=== PATIENT | male | born 1945 | race Two or more races ===

== ENCOUNTER 2024-09-01 22:58 | Emergency (ER) | payer MEDICARE, OTHER ==
[~2024-09-01] VITALS: Ht 167.6 cm; Wt 74.8 kg
[2024-09-01] MEDS ORDERED: LIDOCAINE HCL 1% 20 ML VIAL ONE (23:41)
[2024-09-02 00:39] VITALS: BP 135/88; TEMP 98.5; O2SAT 96
[2024-09-02] MEDS: LIDOCAINE HCL 1% 20 ML VIAL TP ONE (00:43)
== END 2024-09-02 00:40 | disposition home or self-care (01) ==
LOC: ER 22:58
DX: I83.891 Varicose veins of right lower extremity with other complications (principal); E78.5 Hyperlipidemia, unspecified; Z98.890 Other specified postprocedural states
CPT/HCPCS: 37799; 99283; J3490; A4606; A4663

== ENCOUNTER 2024-09-11 23:16 | Emergency (ER) | payer OTHER ==
[~2024-09-11] VITALS: Ht 167.6 cm; Wt 74.8 kg
[2024-09-11] MEDS: CLINDAMYCIN PHOSPHATE IV 900 MG in IV DEXTROSE 5% 100 ML IV ONE (00:04)
[2024-09-11] MEDS ORDERED: CLIN300C12 PO (23:55)
[2024-09-12] MEDS ORDERED: CLINDAMYCIN 900MG/D5W 100ML IVPB **ER PYXIS ONLY IJ ONE
[2024-09-12] MEDS ORDERED: TDAP DIPH,PERTUSS,TET VAC/PF 0.5 ML DISP.SYRIN IM ONE
[2024-09-12] MEDS: TDAP DIPH,PERTUSS,TET VAC/PF 0.5 ML DISP.SYRIN IM ONE (00:02)
[2024-09-12 00:55] VITALS: BP 142/88; TEMP 98.5; O2SAT 97
== END 2024-09-12 00:55 | disposition home or self-care (01) ==
LOC: ER 23:23
DX: L03.115 Cellulitis of right lower limb (principal); E78.5 Hyperlipidemia, unspecified
CPT/HCPCS: 99284; 96365; 90715; 90471; J3490 ×2; A4606; A4663